=== PATIENT | female | born 1975 | race Caucasian/White ===

== ENCOUNTER 2023-07-24 17:50 | Emergency (ER) | payer BC ==
[~2023-07-24] VITALS: Ht 152.4 cm; Wt 113.9 kg
[2023-07-24 18:04] VITALS: BP 161/95; PULSE 76; RESP 18; TEMP 98.1; O2SAT 98
[2023-07-24] MEDS ORDERED: IBUP-2213 PO (19:26)
[2023-07-24] MEDS: KETOROLAC 30 MG/ML VIAL IM ONE (19:49)
== END 2023-07-24 19:50 | disposition home or self-care (01) ==
LOC: MED 17:50
DX: M25.561 Pain in right knee (principal); Z79.899 Other long term (current) drug therapy
CPT/HCPCS: 73562; 96372; 99283; J1885